=== PATIENT | female | born 1960 | race Caucasian/White ===

== ENCOUNTER → 2016-11-17 | Outpatient (CLI) | payer OTHER ==
--- NOTE | 2016-11-19 08:18 | DX ---
Bone Densitometry Indication: Screening for osteoporosis. Technique: DEXA scan was performed on HoloKincast Discovery W Bone Densitometer. Comparison Study: None. Results: Lumbar Spine (L1-L4) BMD: 0.998 T-score: -0.4 Total Hip (Right) BMD: 0.812 T-score: -1.1 Femoral Neck (Right) BMD: 0.682 T-score: -1.5 Total Hip (Left) BMD: 0.801 T-score: -1.2 Femoral Neck (Left) BMD: 0.656 T-score: -1.7 Conclusion: Osteopenia. Additional Comments: 1. By FRAX calculation, the estimated 10-year risk of any major osteoporotic fracture is 6.2%. The e stimated 10-year risk of hip fracture is 0.6%. 2. Consider repeating this study in 2 years or as clinically indicated. NOTE: The risk of osteoporotic fracture increases approximately two-fold for each 1.0 SD decrease in T-score. The T-score represents the standard deviations from a young normal, same sex, reference po pulation. Low bone density is not the only risk factor for fracture. Clinical factors to consider include fall risk, previous osteoporotic fracture, family history of fractures, smoking, and low body weight. Patients who have an unexpectedly low BMD may need to be evaluated for secondary causes of low bone m ineral density. In comparing the present study to a prior study, lack of a significant increase or decrease in BMD ma y signify efficacy of the patient's present treatment. Bone mineral density measurements performed with densitometers produced by different manufacturers ar e not comparable. For the most reproducible BMD measurement, subsequent exams should be performed on the same densitometer.
== END ==
LOC: BMCIMAGING 14:50
PROVIDERS: ATTEND Nurse Practitioner Women's Health
DX: Z13.820 Encounter for screening for osteoporosis (principal)

== ENCOUNTER 2016-12-24 05:59 | Day surgery (SDC) | payer OTHER ==
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
[2016-12-24] MEDS ORDERED: LIDOCAINE 1% 5 ML SDV ONE (06:15)
[2016-12-24 06:52] LABS: ADD DIFF? NO; ADD MORPH? NO; ADD SCAN? NO; ATYPICAL LYMPHOCYTE FLAG 0 (0-99); FRAGMENT RBC FLAG 0 (0-99); HEMATOCRIT 40.3 % (38.0-47.0); HEMOGLOBIN 13.7 g/dL (12.6-16.3); LEFT SHIFT FLG 0 (0-99); LIPEMIA HEMOLYSIS FLAG 90 (0-99); MEAN CELL HEMOGLOBIN 31.3 pg (27.9-34.1); MEAN PLATELET VOLUME 9.6 fL (8.7-11.7); PLATELET CLUMPS FLAG 0 (0-99); PLATELET COUNT 276 10^3/uL (150-400); RED BLOOD CELL COUNT 4.38 10^6/uL (4.18-5.33); RED CELL DISTRIBUTION WIDTH 12.8 % (11.5-15.2)
[2016-12-24] MEDS ORDERED: ceFAZolin 2 GM/DEXTROSE 100 ML IV ONE (07:00)
[2016-12-24] MEDS ORDERED: LIDOCAINE 1% 5 ML SDV ID PRN (07:01)
[2016-12-24] MEDS ORDERED: LR 1,000 ML IV ONE (07:01)
[2016-12-24] MEDS ORDERED: fentaNYL 100 MCG/2 ML INJ ONE ×2 (07:11→08:08)
[2016-12-24] MEDS ORDERED: PROPOFOL/EMULSION 500 MG/50 ML BOTTLE IV ONE (07:11)
[2016-12-24] MEDS ORDERED: LIDOCAINE 2% 100 MG/5 ML SYR IVP ONE (07:12)
[2016-12-24] MEDS ORDERED: METOCLOPRAMIDE 10 MG/2 ML VIAL ONE (07:12)
[2016-12-24] MEDS ORDERED: DEXAMETHASONE 4 MG/ML VIAL ONE ×2 (07:12)
[2016-12-24] MEDS ORDERED: KETOROLAC 30 MG/1 ML SDV ONE (07:12)
[2016-12-24 07:16] LABS: ALANINE AMINOTRANSFERASE 38 IU/L (9-52); ALBUMIN 3.6 g/dL (3.5-5.0); ALKALINE PHOSPHATASE 43 IU/L (38-126); ANION GAP 6 mEq/L (8-16); ASPARTATE AMINOTRANSFERASE 26 IU/L (14-46); BILIRUBIN,TOTAL 0.4 mg/dL (0.1-1.4); CALCIUM 8.7 mg/dL (8.5-10.4); CARBON DIOXIDE 23 mEq/l (22-31); CHLORIDE 110 mEq/L (97-110); CREATININE 0.7 mg/dL (0.6-1.0); GLOMERULAR FILTRATION RATE > 60; GLUCOSE 89 mg/dL (70-100); POTASSIUM 4.2 mEq/L (3.5-5.2); SODIUM 139 mEq/L (134-144); TOTAL PROTEIN 6.1 g/dL (6.3-8.2)
[2016-12-24] MEDS ORDERED: MIDAZOLAM 2 MG/2 ML VIAL ONE (07:17)
[2016-12-24] MEDS ORDERED: ONDANSETRON 4 MG/2 ML VIAL ONE (08:13)
[2016-12-24] MEDS ORDERED: KETOROLAC 30 MG/1 ML SDV IVP PRN (08:46)
[2016-12-24] MEDS ORDERED: HYDROCODONE/APAP 5/325 TAB PO PRN (08:48)
--- NOTE | 2016-12-24 09:10 | GOP ---
[f rep st] OPERATIVE REPORT DATE OF OPERATION: 12/24/2016 SURGEON: Lyndsay Barrera MD ANESTHESIA: Dr. Angelo. General anesthesia. PREOPERATIVE DIAGNOSIS: Postmenopausal bleeding and endometrial polyp. POSTOPERATIVE DIAGNOSIS: Postmenopausal bleeding and endometrial polyp. PROCEDURE PERFORMED: Hysteroscopy, dilation and curettage polypectomy with morcellator. FINDINGS: SPECIMENS: Pathologic specimen will be endometrial curettings and endometrial polyp. ESTIMATED BLOOD LOSS: For the procedure was less than 10 cc. INDICATIONS: The patient is a 56-year-old, 0 who has been on hormone replacement therapy fo r several years for her symptoms. She also had a Mirena IUD in place, She began having small amount s of postmenopausal bleeding in the middle of last year, spotting, pink and red and then dark brown. It continued into October, and in November she had her Mirena IUD pulled out. With this the bleed ing became more severe, bright red and heavier. 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 Endometrial cavity was thin. Because of the arcuate nature of her uterus and the poly p that was clearly in the endometrial cavity, the decision was made to forego a blind endometrial bi opsy and instead do a hysteroscopy D and C, and polypectomy so we can have direct visualization and make sure that we sample the entire uterine contents and remove the polyp. The patient was in agree ment with this. She was consented for the procedure. She understood the risks and benefits. The r isks including bleeding, infection, damage to her uterus, including possible risk of perforation, an d damage to other organs if perforation were to occur, need for additional procedures and incomplete treatment of her postmenopausal bleeding. She understood these risks and benefits and agreed to pr oceed. DESCRIPTION OF PROCEDURE: Patient was taken to the operating room where she was placed under genera l anesthesia without difficulty. She was prepped and draped in the dorsal lithotomy position, and h er bladder had previously been drained with void, and after a WHO time-out was performed and an open -sided speculum was placed in the vagina, and then a Dudley tenaculum was used to grasp the anterior lip of the cervix. The uterus sounded to 7 cm. The cervix was progressively dilated with Tyson di lators to a #6.6. The TruClear hysteroscope was then gently advanced from the cervix to the fundus, and visualization of the entire cavity was performed. Upon entry, there was an endometrial polyp v isualized in the right horn. The patient clearly has a bicornuate uterus with a separation in the m iddle, and both tubal ostia were seen on either side, and there was some redundant endometrial tissu e. No other abnormalities were seen in the cavity. The polyp blade morcellator was then advanced t hrough the operative channel, and after window lock was performed, the morcellation was performed of the polyp as well as any redundant endometrial tissue until the cavity was clean and empty. The hy steroscope was then removed. A sharp curettage was then performed in a clockwise fashion until a gr itty texture was palpated throughout the entire uterus. The curettage as well as the morcellator sp ecimen will be sent as one specimen. The hysteroscope was removed. The tenaculum was removed. There was hemostasis at the anterior lip of the cervix. The patient tolerated the procedure well. Sponge, lap, needle, and instrument count s were correct x3. Patient went to the recovery room in good condition. IV FLUIDS: 700 cc. URINE OUTPUT: Not measured. /[id number]/MODL
== END 2016-12-24 10:52 | disposition home or self-care (01) ==
LOC: FSGY 05:59
PROVIDERS: ATTEND Obstetrics & Gynecology
PROC: 0UDB8ZZ Extraction of Endometrium, Via Natural or Artificial Opening Endoscopic (ICD-10-PCS; principal; 2016-12-24 07:15)
DX: N84.0 Polyp of corpus uteri (principal); N95.0 Postmenopausal bleeding; Q51.810 Arcuate uterus; Z79.890 Hormone replacement therapy
CPT/HCPCS: 58558; C1782; J0690; J1100; J1885; J2001; J2250; J2405; J2704; J2765; J3010

== ENCOUNTER 2018-01-28 12:54 | Emergency (ER) | payer OTHER ==
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
[2018-01-28 13:17] VITALS: RESP 16
[2018-01-28] MEDS ORDERED: IOPAMIDOL (ISOVUE 370) 100 ML BTL IV ONE (15:28)
[2018-01-28 17:31] VITALS: BP 115/63; PULSE 60; TEMP 98.1; O2SAT 95
== END 2018-01-28 17:32 | disposition home or self-care (01) ==
LOC: EDUNIT# → EEVIPCON 12:54
DX: M50.30 Other cervical disc degeneration, unspecified cervical region (principal); V89.9XXA Person injured in unspecified vehicle accident, initial encounter; Y92.410 Unspecified street and highway as the place of occurrence of the external cause
CPT/HCPCS: Q9967

== ENCOUNTER 2018-06-30 18:18 | Emergency (ER) | payer OTHER ==
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
[2018-06-30] MEDS ORDERED: IBUPROFEN 600 MG TAB PO ONE (21:26)
[2018-06-30 23:03] VITALS: BP 98/70
== END 2018-06-30 23:01 | disposition home or self-care (01) ==
LOC: EDUNIT#
DX: R20.2 Paresthesia of skin (principal); M54.2 Cervicalgia
CPT/HCPCS: L0120

== ENCOUNTER → 2018-09-01 | Outpatient (CLI) | payer OTHER | LOC: BMCIMAGING 07:28 | PROVIDERS: ATTEND Hospitalist | DX: Z12.31 Encounter for screening mammogram for malignant neoplasm of breast (principal) ==